=== PATIENT | male | born 1980 | race Two or more races ===

== ENCOUNTER 2020-12-14 21:50 | Emergency (ER) | payer SELFPAY ==
[~2020-12-14] VITALS: Ht 172.7 cm; Wt 90.7 kg
[2020-12-14 22:01] VITALS: BP 124/74
== END 2020-12-14 23:49 | disposition left against medical advice (07) ==
LOC: EDBD 21:50 → ER 21:53
DX: F10.129 Alcohol abuse with intoxication, unspecified (principal); Y90.9 Presence of alcohol in blood, level not specified; Z53.21 Procedure and treatment not carried out due to patient leaving prior to being seen by health care provider